=== PATIENT | female | born 1940 | race Caucasian/White ===

== ENCOUNTER → 2018-09-07 | Outpatient (CLI) | payer OTHER ==
[2018-09-07 11:16] LABS: APTT 26.9 Seconds (24.5-32.8)
--- NOTE | 2018-09-10 15:05 | PATH ---
[facility] [address] [place] [address] PATHOLOGY RPT PROCEDURE Name: NOLAN LERNER Room #: REG [facility]#: [id number] Admission: 09/07/18 Date of : 42 Discharge: Report #: [id number] Path Case #: [id number] Note [facility] Accession Number: [id number] TESTS RESULT FLAG UNITS REF RANGE LAB Clinician Provided Cytology Information No. of containers..01 Other (Miscellaneous) Source: 01 LT SUB AREOLAR BRST DIAGNOSIS: 02 LEFT SUB AREOLAR BREAST, ASPIRATION NEGATIVE FOR MALIGNANT CELLS. DUCTAL CELLS AND FOAM CELLS ARE PRESENT. THIS INTERPRETATION INCLUDES EVALUATION OF A CELL BLOCK. Comment: Examination shows apocrine metaplastic ductal epithelial cells along with a few macrophages and proteinaceous material. Findings may be suggestive of a cyst with papillary apocrine metaplasia or ductal epithelium showing apocrine metaplasia.Malignant epithelial changes are not identified. Please note sample may not be promotional representative. Correlate clinically and follow-up as indicated. Signed out by: 02 Imelda Hernandez MD, Pathologist NPI- [id number] Performed by: 01 Clayton Mar, Truckman ([facility]) Gross description: 01 1 ML, YELLOW, CLEAR /LCS FLAG LEGEND: L-Low Normal,H-High Normal,LL-Alert Low,HH-Alert High <-Panic Low,>-Panic High,A-Abnormal,AA-Critical Abnormal Performed at: 01 [facility] [address] [place] [address] Damion Baker MD, [address] [address] Imelda Hernandez MD, Specimen Comment: A courtesy copy of this report has been sent to Specimen Comment: [phone]. Specimen Comment: Report sent to Performed at: [address] [address] PATHOLOGY RPT PROCEDURE Name: NOLAN LERNER Room #: REG [facility]#: [id number] Admission: 09/07/18 Date of : 42 Discharge: Report #: [id number] Path Case #: [id number] [address], [place], [place] [id number] MD Damion Baker MD Phone: [phone]
== END | disposition home or self-care (01) ==
LOC: ULTRA 10:21
DX: N60.02 Solitary cyst of left breast (principal); N60.12 Diffuse cystic mastopathy of left breast; Z98.890 Other specified postprocedural states; Z79.01 Long term (current) use of anticoagulants